=== PATIENT | female | born 1975 | race Caucasian/White ===

== ENCOUNTER 2017-10-05 15:51 | Inpatient (IN) | payer OTHER ==
[~2017-10-05] VITALS: Ht 162.6 cm; Wt 89.0 kg
[2017-10-05] MEDS ORDERED: SULF800T23 PO (17:18)
[2017-10-05] MEDS ORDERED: VNTHFA/IN INH (17:18)
[2017-10-05] MEDS ORDERED: OXYC-57 PO (17:18)
[2017-10-05 17:40] VITALS: BP 113/74; PULSE 72; TEMP 36.6; O2SAT 93
[2017-10-05 17:43] LABS: BASO % 0.5 %; BASO ABS # 0.04 K/uL (0-0.2); EOS % 3.3 %; EOS ABS # 0.25 K/uL (0-0.5); HEMATOCRIT 39.8 % (37-47); HEMOGLOBIN 14.4 g/dL (12.0-16.0); IG# 0.01 K/uL (0.00-0.02); LYMPH ABS # 1.76 K/uL (1.2-3.4); MEAN CELL VOLUME 91.9 fL (80-100); MEAN CORPUSCULAR HEMOGLOBIN 33.3 pg (25-34); MEAN CORPUSCULAR HGB CONC 36.2 g/dl (32-36); MEAN PLATELET VOLUME 9.6 fL (7.4-10.4); MONO ABS # 0.46 K/uL (0.11-0.59); NEUT % 67.1 %; NEUT ABS # 5.12 K/uL (1.4-6.5); PLATELET COUNT 248 K/uL (130-400); RED CELL DISTRIBUTION WIDTH CV 12.4 % (11.5-14.5); RED CELL DISTRIBUTION WIDTH SD 42.1 fL (36.4-46.3); WHITE BLOOD COUNT 7.64 K/uL (4.8-10.8)
[2017-10-05 18:10] LABS: CALCIUM 8.6 mg/dl (8.5-10.1); CREATININE 0.63 mg/dl (0.60-1.20); POTASSIUM 3.7 mmol/L (3.5-5.1)
[2017-10-05] MEDS ORDERED: ONDANSETRON INJ 2 MG/ML 2 ML VIAL IV PRN (18:15)
[2017-10-05] MEDS ORDERED: ALUMINUM/MAGNESIUM SUSP 30 ML UDC PO PRN (18:15)
[2017-10-05] MEDS ORDERED: ALBUTEROL HFA 8 GM INHALER INH PRN (18:15)
[2017-10-05 19:38] VITALS: BP 111/85; PULSE 74; TEMP 36.9; O2SAT 99; Ht 162.6 cm; Wt 89.0 kg
[2017-10-05] MEDS: CEFAZOLIN IV 1,000 MG in SYRINGE 0 ML IV SCH (20:00)
[2017-10-05] MEDS: DOCUSATE SODIUM 100 MG CAP PO SCH (21:01)
[2017-10-05] MEDS: D5W AND 1/2NSS 1,000 ML IV SCH (21:01)
[2017-10-05 23:05] VITALS: BP 112/76; PULSE 75; TEMP 36.6; O2SAT 100
--- NOTE | 2017-10-05 23:51 | EMERGENCY ROOM VISIT NOTE ---
History Report prepared by Emilia: Hi Weldon Under the Supervision of: Dr. Jorge Lemos M.D. First contact with patient: 16:49 Chief Complaint: INFECTION Stated Complaint: INFECTION (RIGHT HAND) Nursing Triage Summary: pt reprots that she broke her hand 1 month ago. pt was having reddness, swelling and drainage and had MRI done thursday. pt was told by her doctor to come here for IV abx after having an MRI. History of Present Illness The patient is a 42 year old female who presents to the Emergency Room with complaints of a worsening right hand infection over the past week. She states that she had initially broken her right hand, and had surgery with pins inserted by Dr. Duarte of [facility]. The patient notes that she had the pins taken out on the 28 of September, but starting the week before that, she was having redness and pain with yellow discharge coming out of the right hand. She says that she had a culture sent in to [facility], but the culture was put in the wrong tube so she never got the results. The patient then had an MRI in [place], and today was told by Dr. Duarte' office to come here for IV antibiotics. Pt denies LOC, headache, fevers, chills, diaphoresis, visual changes, neck pain, chest pain, breathing difficulties, nausea, vomiting, abdominal pain, back pain, melena, hematochezia, urinary symptoms, numbness, weakness, lymphadenopathy, or other complaints. Source of History: patient Onset: Over past week Position: hand (right) Symptom Intensity: redness, pain, yellow discharge Quality: other (infection) Timing: worsening Note: No other associated symptoms noted. Review of Systems See HPI for pertinent positives and negatives. A total of ten systems were reviewed and were otherwise negative. Past Medical & Surgical Medical Problems: (1) Asthma (2) Infection of hand Family History Hypertension Seizures Social History Smoking Status: Never Smoker Alcohol Use: occasionally Marital Status: in relationship Housing Status: lives with family Current/Historical Medications Scheduled Sulfa/Trimethoprim (Bactrim Ds 800MG/160MG), 1 TAB PO Q12 Scheduled PRN Albuterol Hfa (Ventolin Hfa), 2 PUFFS INH QID PRN for Shortness of Breath Oxycodone/Acetaminophen 5MG/325MG (Percocet 5MG/325MG), 1-2 TABLET PO Q6H PRN for Pain Allergies Coded Allergies: NSAIDs (Unverified Allergy, Unknown, lap band, 10/05/17) Cyclobenzaprine (Verified Adverse Reaction, Mild, restless legs , 10/05/17) Physical Exam Vital Signs Date Time Temp Pulse Resp B/P (MAP) Pulse Ox O2 Delivery O2 Flow Rate FiO2 10/05/17 17:59 79 18 111/82 98 Room Air 10/05/17 16:05 36.9 73 20 136/95 98 Room Air Physical Exam GENERAL: Awake, alert, well-appearing, in no distress HENT: Normocephalic, atraumatic. Oropharynx unremarkable. EYES: Normal conjunctiva. Sclera non-icteric. NECK: Supple. No nuchal rigidity. FROM. No masses. RESPIRATORY: Clear to auscultation. No wheezes. No rales. Normal respiratory effort. CARDIAC: Normal rate. Normal rhythm. No murmurs. No rubs. Extremities warm and well perfused. Pulses equal. No JVD. GI: Soft, non-distended. No tenderness to palpation. No rebound or guarding. No masses. RECTAL: Deferred. MUSCULOSKELETAL: Tenderness and redness over healing incision over right 5th MCP joint. Fingers and rest of hand appear normal. Inability to extend right 5th digit. Chest examination reveals no tenderness. The back is symmetrical on inspection without obvious abnormality. There is no CVA tenderness to palpation. LOWER EXTREMITIES: Calves are equal size bilaterally and non-tender. No edema. No discoloration. NEURO: Normal sensorium. No sensory or motor deficits noted. SKIN: No rash or jaundice noted. Medical Decision & Procedures Laboratory Results 10/05/17 17:22 Red Blood Count 4.33, Mean Corpuscular Volume 91.9, Mean Corpuscular Hemoglobin 33.3, Mean Corpuscular Hemoglobin Concent 36.2, Mean Platelet Volume 9.6, Neutrophils (%) (Auto) 67.1, Lymphocytes (%) (Auto) 23.0, Monocytes (%) (Auto) 6.0, Eosinophils (%) (Auto) 3.3, Basophils (%) (Auto) 0.5, Neutrophils # (Auto) 5.12, Lymphocytes # (Auto) 1.76, Monocytes # (Auto) 0.46, Eosinophils # (Auto) 0.25, Basophils # (Auto) 0.04 10/05/17 17:22 Test 10/05/17 17:22 White Blood Count 7.64 K/uL (4.8-10.8) Red Blood Count 4.33 M/uL (4.2-5.4) Hemoglobin 14.4 g/dL (12.0-16.0) Hematocrit 39.8 % (37-47) Mean Corpuscular Volume 91.9 fL (80-100) Mean Corpuscular Hemoglobin 33.3 pg (25-34) Mean Corpuscular Hemoglobin Concent 36.2 g/dl (32-36) Platelet Count 248 K/uL (130-400) Mean Platelet Volume 9.6 fL (7.4-10.4) Neutrophils (%) (Auto) 67.1 % Lymphocytes (%) (Auto) 23.0 % Monocytes (%) (Auto) 6.0 % Eosinophils (%) (Auto) 3.3 % Basophils (%) (Auto) 0.5 % Neutrophils # (Auto) 5.12 K/uL (1.4-6.5) Lymphocytes # (Auto) 1.76 K/uL (1.2-3.4) Monocytes # (Auto) 0.46 K/uL (0.11-0.59) Eosinophils # (Auto) 0.25 K/uL (0-0.5) Basophils # (Auto) 0.04 K/uL (0-0.2) RDW Standard Deviation 42.1 fL (36.4-46.3) RDW Coefficient of Variation 12.4 % (11.5-14.5) Immature Granulocyte % (Auto) 0.1 % Immature Granulocyte # (Auto) 0.01 K/uL (0.00-0.02) Erythrocyte Sedimentation Rate 11 mm/hr (0-21) Anion Gap 7.0 mmol/L (3-11) Est Creatinine Clear Calc Drug Dose 128.3 ml/min Estimated GFR () 130.0 Estimated GFR (Non- 112.2 BUN/Creatinine Ratio 13.5 (10-20) Calcium Level 8.6 mg/dl (8.5-10.1) C-Reactive Protein < 0.29 mg/dl (0-0.29) Chemistry Specimen Hemolysis Laboratory results reviewed by me Medications Administered Medications (Trade) Dose Ordered Sig/Molly Route Start Time Stop Time Status Last Admin Dose Admin Dextrose/Sodium Chloride 1,000 ml @ 75 mls/hr [id number] IV 10/05/17 18:11 11/04/17 18:10 10/05/17 21:01 75 MLS/HR ED Course 1656: The patient was evaluated in room C9. A complete history and physical exam was performed. 1718: The MRI from [facility] shows osteomyelitis. 1721: I discussed the patient with Dr. Sujata ALVAREZ. 1803: I discussed the patient with Dr. Sujata ALVAREZ - orthopedics will evaluate the patient for further treatment. 1810: Upon reexamination, the patient was resting comfortably. I discussed the test results and treatment plan with her. She expressed understanding and agreement of the treatment plan. The patient will be evaluated by orthopedics for further management. Medical Decision The patient presented emergency department complaining of an infection in her surgical site of her hand. Differential includes osteomyelitis, wound infection , abscess, cellulitis, as well as others. The patient's physical examination did not reveal any clear signs of abscess. MRI report was obtained from the outpatient imaging and this was concerning for osteomyelitis. Blood work was unremarkable. Additional imaging was not performed. I did consult with [facility]. The patient will be admitted for further treatment and antibiotic administration. Medication Reconcilliation Current Medication List: was personally reviewed by me Blood Pressure Screening Patient's blood pressure: Elevated blood pressure Blood pressure disposition: Elevated BP felt to be situational Consults Time Called: 1717 Consulting Physician: Dr. Sujata ALVAREZ Returned Call: 1721 I discussed the patient with Dr. Sujata ALVAREZ. Additional Consults: Time Called: -- Consulted Physician: Dr. Sujata ALVAREZ Returned Call: 1803 Additional Comments: I discussed the patient with Dr. Sujata ALVAREZ - orthopedics will evaluate the patient for further treatment. Impression Primary Impression: Osteomyelitis of right hand Scribe Attestation The scribe's documentation has been prepared under my direction and personally reviewed by me in its entirety. I confirm that the note above accurately reflects all work, treatment, procedures, and medical decision making performed by me. Departure Information Dispostion Other (Being evaluated by orthopedics) Referrals No Doctor, Assigned (PCP) Patient Instructions My [facility] Problem Qualifiers Primary Impression: Osteomyelitis of right hand Osteomyelitis type: unspecified type Qualified Codes: M86.9 - Osteomyelitis , unspecified
[2017-10-06] VITALS (7 sets, daily range): BP systolic 80–111; BP diastolic 49–73; PULSE 65–81; TEMP 36.7–36.8; O2SAT 94–98
[2017-10-06] MEDS: OXYCODONE/ACETAMINOPHEN 5-325 TAB PO PRN ×2 (01:54→18:45)
[2017-10-06] MEDS: CEFAZOLIN IV 1,000 MG in SYRINGE 0 ML IV SCH (04:58)
--- NOTE | 2017-10-06 07:22 | History and Physical ---
History & Physical Date October 06, 2017. Chief Complaint right hand pain History of Present Illness The patient is a 42 year old female who presented to the Emergency Room with complaints of a worsening right hand infection over the past week. She originally underwent a right shoulder SLAP repair approximately 6 weeks ago, upon follow to have her sutures removed it was noted that she was in a ulnar gutter splint. when questioned what happened, she stated she got upset and had her sling off, then punched a wall. she had a displaced 5th metacarpal fracture which required CRPP. after routine follow up, she presented last week to have the pins removed, after removal, it was noted that she had purulent drainage noted from the pin sites. MRI was obtained which was concerning for osteomyelitis as well as inflammatory changes noted along adjacent soft tissue. Pt denies LOC, headache, fevers, chills, diaphoresis, visual changes, neck pain , chest pain, breathing difficulties, nausea, vomiting, abdominal pain, back pain, melena, hematochezia, urinary symptoms, numbness, weakness, lymphadenopathy, or other complaints. Past Medical/Surgical History Medical Problems: (1) Asthma (2) Infection of hand Additional History Hepatic Disease: No Endocrine Disorder: No Kidney Disease: No Hypertension: No Heart Disease: No Allergies Coded Allergies: NSAIDs (Unverified Allergy, Unknown, lap band, 10/05/17) Cyclobenzaprine (Verified Adverse Reaction, Mild, restless legs , 10/05/17) Home Medications Scheduled Sulfa/Trimethoprim (Bactrim Ds 800MG/160MG), 1 TAB PO Q12 Scheduled PRN Albuterol Hfa (Ventolin Hfa), 2 PUFFS INH QID PRN for Shortness of Breath Oxycodone/Acetaminophen 5MG/325MG (Percocet 5MG/325MG), 1-2 TABLET PO Q6H PRN for Pain Physical Examination Skin: warm/dry, no rash Eyes: normal inspection, EOMI, sclerae normal ENT: normal ENT inspection, pharynx normal Head: normocephalic, atraumatic Neck: supple, no adenopathy, trachea midline Respiratory/Chest: lungs clear, normal breath sounds, no respiratory distress Cardiovascular: regular rate, rhythm, no edema, no murmur Addiitonal Comments: right hand: erythema noted over dorsum of hand with swelling extending to proximal wrist crease, NVDI, CR <2sec, tenderness greatest over 5th MC but extends over dorsum of hand. was noted to have purulent drainage from the two distal pin sites. MRI: reviewed and concerning for osteomyelitis with inflammatory findings extending into the adjacent soft tissues including the extensor tendon and dorsal cutaneous surface. Diagnosis Right hand infection s/p CRPP of 5th metacarpal fracture Plan of Treatment Patient admitted for IV antibiotics and will be re-examined later today for possible I&D right hand. will keep NPO today for possible planned surgery. cont to ice/elevate for swelling, consult dr [facility].
[2017-10-06 07:36] LABS: HEMATOCRIT 36.6 % (37-47); HEMOGLOBIN 12.9 g/dL (12.0-16.0); MEAN CELL VOLUME 92.9 fL (80-100); MEAN CORPUSCULAR HEMOGLOBIN 32.7 pg (25-34); MEAN CORPUSCULAR HGB CONC 35.2 g/dl (32-36); MEAN PLATELET VOLUME 9.5 fL (7.4-10.4); PLATELET COUNT 209 K/uL (130-400); RED CELL DISTRIBUTION WIDTH CV 12.5 % (11.5-14.5); RED CELL DISTRIBUTION WIDTH SD 42.7 fL (36.4-46.3); WHITE BLOOD COUNT 7.16 K/uL (4.8-10.8)
[2017-10-06] MEDS: PANTOprazole SOD 40 MG TAB PO SCH (08:05)
[2017-10-06] MEDS: DOCUSATE SODIUM 100 MG CAP PO SCH ×2 (08:05→21:00)
[2017-10-06] MEDS: D5W AND 1/2NSS 1,000 ML IV SCH ×2 (08:05→20:51)
--- NOTE | 2017-10-06 10:25 | Medical Consult ---
Consultation Date of Consultation: October 06, 2017. Attending Physician: Ruslan Duarte D.O. Reason for Consultation: Hand infection History of Present Illness 42-year-old female status post right shoulder surgery in approximately 6 weeks ago, then suffered fracture of her right hand requiring pinning. She subsequently developed drainage from the wound with redness, swelling, and pain , treated with cephalexin without much improvement. Subsequently underwent removal of the pins and was changed to oral Bactrim therapy. Symptoms worsened , and MRI was obtained which showed possibility of osteomyelitis of the right hand. She was admitted to the hospital for further management. She has been started on cefazolin. Blood cultures are pending. Apparently wound culture which was taken at another hospital was Ms. yusuf older no results available. She has not had any significant fever or chills. Past Medical/Surgical History Medical Problems: (1) Osteomyelitis of right hand Status: Acute Medical Problems: (1) Asthma (2) Infection of hand Family History Hypertension Seizures Social History Smoking Status: Never Smoker Marital Status: in relationship Housing Status: lives with family Allergies Coded Allergies: NSAIDs (Unverified Allergy, Unknown, lap band, 10/05/17) Cyclobenzaprine (Verified Adverse Reaction, Mild, restless legs , 10/05/17) Current Inpatient Medications Current Inpatient Medications Medications (Trade) Dose Ordered Sig/Molly Route Start Time Stop Time Status Last Admin Dose Admin Oxycodone/ Acetaminophen (Percocet 5-325mg Tab) `1-2 TABS FOR PAIN `1 TAB... Q4H PRN PO 10/05/17 18:15 10/19/17 18:14 10/06/17 01:54 2 TAB Diphenhydramine HCl (Benadryl Cap) 25 mg Q8 PRN PO 10/05/17 18:15 11/04/17 18:14 Ondansetron HCl (Zofran Inj) 4 mg Q6H PRN IV 10/05/17 18:15 11/04/17 18:14 Al Hydroxide/Mg Hydroxide (Maalox Susp) 30 ml Q6H PRN PO 10/05/17 18:15 11/04/17 18:14 Docusate Sodium (coLACE CAP) 100 mg BID PO 10/05/17 21:00 11/04/17 20:59 10/05/17 21:01 100 MG Pantoprazole Sodium (Protonix Tab) 40 mg QAM PO 10/06/17 09:00 10/09/17 09:01 Dextrose/Sodium Chloride 1,000 ml @ 75 mls/hr [id number] IV 10/05/17 18:11 11/04/17 18:10 10/06/17 08:05 75 MLS/HR Cefazolin Sodium 1000 mg/Syringe 7.5 ml @ 2.5 mls/min Q8H IV 10/05/17 20:00 10/07/17 10:50 10/06/17 04:58 2.5 MLS/MIN Albuterol (Ventolin Hfa Inhaler) 2 puffs QID PRN INH 10/05/17 18:15 11/04/17 18:14 Review of Systems Constitutional: No fever, No chills Eyes: No problem reported ENT: No problem reported Respiratory: No problem reported Cardiovascular: No problem reported Abdomen: No problem reported Musculoskeletal: + joint pain, + swelling Genitourinary - Female: No problem reported Neurologic: No balance problems Psychiatric: No problem reported Endocrine: No problem reported Hematologic / Lymphatic: No problem reported Integumentary: + new/changing skin lesions Allergic / Immunologic: No problem reported Physical Exam Date Time Temp Pulse Resp B/P (MAP) Pulse Ox O2 Delivery O2 Flow Rate FiO2 10/06/17 07:25 90/57 (68) 10/06/17 07:20 Room Air 10/06/17 07:11 36.7 69 18 80/49 (59) 98 Room Air 10/05/17 23:23 Room Air 10/05/17 23:05 36.6 75 18 112/76 (88) 100 Room Air 10/05/17 20:00 Room Air 10/05/17 19:46 73 18 120/81 99 10/05/17 19:38 36.9 74 18 111/85 99 Room Air 10/05/17 18:57 74 18 111/85 100 Room Air 10/05/17 17:59 79 18 111/82 98 Room Air 10/05/17 16:05 36.9 73 20 136/95 98 Room Air General Appearance: WD/WN, no apparent distress Head: normocephalic, atraumatic Eyes: normal inspection, EOMI, sclerae normal ENT: normal ENT inspection, hearing grossly normal, pharynx normal Neck: supple, no adenopathy, thyroid normal, trachea midline Respiratory/Chest: chest non-tender, lungs clear, normal breath sounds, no respiratory distress Cardiovascular: regular rate, rhythm, no gallop, no murmur Abdomen/GI: normal bowel sounds, non tender, soft, no organomegaly Back: normal inspection, no CVA tenderness Extremities/Musculoskelatal: no calf tenderness, normal capillary refill, + pertinent finding (decresed right 5th finger motion) Neurologic/Psych: alert, normal mood/affect, oriented x 3 Skin: normal color, no rash, + pertinent finding Lymphatic: no adenopathy Laboratory Results Date/Time Source Procedure Growth Status 10/05/17 17:28 Blood Blood Culture Pending Received 10/05/17 17:22 Blood Blood Culture Pending Received Last 24 Hours Test 10/05/17 17:22 10/06/17 07:24 White Blood Count 7.64 K/uL 7.16 K/uL Red Blood Count 4.33 M/uL 3.94 M/uL Hemoglobin 14.4 g/dL 12.9 g/dL Hematocrit 39.8 % 36.6 % Mean Corpuscular Volume 91.9 fL 92.9 fL Mean Corpuscular Hemoglobin 33.3 pg 32.7 pg Mean Corpuscular Hemoglobin Concent 36.2 g/dl 35.2 g/dl Platelet Count 248 K/uL 209 K/uL Mean Platelet Volume 9.6 fL 9.5 fL Neutrophils (%) (Auto) 67.1 % Lymphocytes (%) (Auto) 23.0 % Monocytes (%) (Auto) 6.0 % Eosinophils (%) (Auto) 3.3 % Basophils (%) (Auto) 0.5 % Neutrophils # (Auto) 5.12 K/uL Lymphocytes # (Auto) 1.76 K/uL Monocytes # (Auto) 0.46 K/uL Eosinophils # (Auto) 0.25 K/uL Basophils # (Auto) 0.04 K/uL RDW Standard Deviation 42.1 fL 42.7 fL RDW Coefficient of Variation 12.4 % 12.5 % Immature Granulocyte % (Auto) 0.1 % Immature Granulocyte # (Auto) 0.01 K/uL Erythrocyte Sedimentation Rate 11 mm/hr Sodium Level 136 mmol/L Potassium Level 3.7 mmol/L Chloride Level 106 mmol/L Carbon Dioxide Level 23 mmol/L Anion Gap 7.0 mmol/L Blood Urea Nitrogen 8 mg/dl Creatinine 0.63 mg/dl Est Creatinine Clear Calc Drug Dose 128.3 ml/min Estimated GFR () 130.0 Estimated GFR (Non- 112.2 BUN/Creatinine Ratio 13.5 Random Glucose 91 mg/dl Calcium Level 8.6 mg/dl C-Reactive Protein < 0.29 mg/dl Chemistry Specimen Hemolysis Assessment & Plan Right hand infection with probable osteomyelitis, for I+D later today. Will change to IV daptomycin as likely will require prolonged IV RX as outpatient. Await OR cultures. Will follow.
[2017-10-06] MEDS: DAPTOmycin IV 400 MG in SYRINGE 0 ML IV SCH (11:45)
--- NOTE | 2017-10-06 11:59 | History & Physical Bridge Note ---
H&P Re-Evaluation Bridge Note: I have examined the patient, reviewed the History & Physical and in the interval since the performance of the History & Physical I have noted the following changes of clinical significance: No changes noted
[2017-10-06] MEDS ORDERED: BACITRACIN 50000 UNIT VIAL ONE (14:30)
[2017-10-06] MEDS ORDERED: MIDAZOLAM HCL 1 MG/ML 2ML VIAL ONE (14:43)
[2017-10-06] MEDS ORDERED: FENTANYL CITRATE INJ 50 MCG/1 ML 2 ML VIAL ONE ×2 (14:43→15:25)
[2017-10-06] MEDS ORDERED: EpHEDrine SULFATE INJ 50 MG/ML AMP IV PRN (14:45)
[2017-10-06] MEDS ORDERED: ATROPINE SULFATE 0.1 MG/ML 5ML SYR IV PRN (14:45)
[2017-10-06] MEDS ORDERED: ONDANSETRON INJ 2 MG/ML 2 ML VIAL IV PRN ×2 (14:45→15:30)
[2017-10-06] MEDS ORDERED: DEXAMETHASONE SOD INJ 4 MG/ML VIAL ONE (15:25)
[2017-10-06] MEDS ORDERED: PROPOFOL IV EMULSION 10 MG/ML 20 ML VIAL ONE (15:25)
[2017-10-06] MEDS ORDERED: LIDOCAINE HCL 2% 2 ML VIAL (20MG/ML) ONE (15:25)
[2017-10-06] MEDS ORDERED: ONDANSETRON INJ 2 MG/ML 2 ML VIAL ONE (15:25)
[2017-10-06] MEDS ORDERED: MAGNESIUM HYDROXIDE SUSP 30 ML UDC PO PRN (15:30)
[2017-10-06] MEDS ORDERED: MoRPHine SULFATE 4 MG/ML 1 ML CARP\\VIAL IV PRN (15:30)
[2017-10-06] MEDS ORDERED: ALUMINUM/MAGNESIUM/SIMETH (MAALOX MAX) 30 ML UDC PO PRN (15:30)
[2017-10-06] MEDS ORDERED: BISACODYL 10 MG SUPP PR PRN (15:30)
[2017-10-06] MEDS ORDERED: MoRPHine SULFATE 10 MG/ML CARP/VIAL IV PRN (15:45)
--- NOTE | 2017-10-06 15:47 | [facility] Post Operative Brief Note ---
Immediate Operative Summary Operative Date October 06, 2017. Pre-Operative Diagnosis Right hand infection status post closed reduction percutaneous pinning of 5th metacarpal fracture Post-Operative Diagnosis same Procedure(s) Performed Right Hand Incision and Drainage with application of packing Surgeon Dr. Ruslan Duarte Pediatric Social Worker Surgeon(s) none Estimated Blood Loss 5mL Findings Consistent with Post-Op Diagnosis Specimens Microbiology: 1. Right small finger wound extensor mechanism Drains None Anesthesia Type General Complication(s) none Disposition Disposition: Recovery Room / PACU
--- NOTE | 2017-10-06 15:49 | [facility] Operative Report ---
Operative Report Operative Date October 06, 2017. Pre-Operative Diagnosis Right hand infection status post closed reduction percutaneous pinning of 5th metacarpal fracture Post-Operative Diagnosis same Procedure(s) Performed At extensor mechanism MCP joint right fifth finger right Hand Incision and Drainage with application of packing Surgeon Dr. Ruslan Duarte Fiscal Analyst Surgeon(s) none Estimated Blood Loss 5mL Findings Patient presents with small area of purulent drainage from the region of pr Patient presents as more purulent any drainage superficial extensor mechanism in region of previous IM pinning Specimens Microbiology: 1. Right small finger wound extensor mechanism Drains None Anesthesia Type General Complication(s) none Disposition Recovery Room / PACU Indications Small area of purulent drainage from previous pin site from I am pinning of fifth met of carpal fracture with surrounding cellulitis Description of Procedure After proper prepping and draping the right upper extremity a 1 cm incision was made over the region of the small fluctuant area there is a small appearance extend that was superficial to the extensor mechanism this was all debrided and washed out the joint was not involved the wound was irrigated with copious sterile saline solution via 6 L of sterile saline solution with bacitracin impregnated and the wound had been thoroughly irrigated for a gyriform packing was placed in the prone to small number of 4-0 sutures were placed to approximate left proximal and distal portion of the wound sterile compressive dressing was placed patient taken recovery in stable condition. I attest to the content of the Intraoperative Record and any orders documented therein. Any exceptions are noted below.
[2017-10-06] MEDS: FENTANYL CITRATE INJ 50 MCG/1 ML 2 ML VIAL IV PRN ×5 (16:04→16:29)
[2017-10-06] MEDS: HYDROmorphone INJ 0.5 MG/0.5 ML SYR IV PRN ×2 (16:35→16:41)
--- NOTE | 2017-10-06 16:56 | Anesthesiology Progress Note ---
Anesthesia Post Op Note Date & Time October 06, 2017 at 16:56 Vital Signs Pain Intensity: 5 Vital Signs Past 12 Hours Date Time Temp Pulse Resp B/P (MAP) Pulse Ox O2 Delivery O2 Flow Rate FiO2 10/06/17 16:51 36.6 94 Room Air 10/06/17 16:47 63 22 10/06/17 16:47 61 22 99 10/06/17 16:46 114/71 10/06/17 16:42 67 16 93 10/06/17 16:42 66 16 10/06/17 16:41 63 13 10/06/17 16:41 62 13 121/76 96 10/06/17 16:36 65 16 10/06/17 16:36 64 16 116/64 99 10/06/17 16:31 67 25 94 10/06/17 16:31 68 25 10/06/17 16:30 114/76 10/06/17 16:28 61 17 96 10/06/17 16:28 63 17 10/06/17 16:26 107/66 10/06/17 16:23 61 18 100 10/06/17 16:23 60 18 10/06/17 16:21 119/79 10/06/17 16:18 61 25 100 10/06/17 16:18 60 25 10/06/17 16:17 63 15 100 10/06/17 16:17 63 15 10/06/17 16:16 129/82 10/06/17 16:12 71 14 10/06/17 16:12 74 14 100 10/06/17 16:10 114/83 10/06/17 16:10 36.7 70 16 120/74 100 Oxymask 10 10/06/17 16:07 69 20 100 10/06/17 16:07 70 20 10/06/17 16:06 121/74 10/06/17 16:02 68 17 100 10/06/17 16:02 68 17 10/06/17 16:01 124/78 10/06/17 15:58 120/74 10/06/17 15:57 70 20 10/06/17 15:57 75 20 10/06/17 12:25 37.1 72 20 108/70 (83) 97 Room Air 10/06/17 07:25 90/57 (68) 10/06/17 07:20 Room Air 10/06/17 07:11 36.7 69 18 80/49 (59) 98 Room Air Notes Mental Status: alert / awake / arousable, participated in evaluation Pt Amnestic to Procedure: Yes Nausea / Vomiting: adequately controlled Pain: adequately controlled Airway Patency, RR, SpO2: stable & adequate BP & HR: stable & adequate Hydration State: stable & adequate Anesthetic Complications: no major complications apparent
[2017-10-07 04:00] VITALS: BP 95/58; PULSE 74; TEMP 36.4; O2SAT 96
[2017-10-07] MEDS: D5W AND 1/2NSS 1,000 ML IV SCH (05:36)
[2017-10-07 07:21] VITALS: BP 100/67; PULSE 78; TEMP 36.5; O2SAT 99
[2017-10-07 08:27] LABS: HEMATOCRIT 36.3 % (37-47); HEMOGLOBIN 12.8 g/dL (12.0-16.0); MEAN CELL VOLUME 92.4 fL (80-100); MEAN CORPUSCULAR HEMOGLOBIN 32.6 pg (25-34); MEAN CORPUSCULAR HGB CONC 35.3 g/dl (32-36); MEAN PLATELET VOLUME 9.8 fL (7.4-10.4); PLATELET COUNT 237 K/uL (130-400); RED CELL DISTRIBUTION WIDTH CV 12.2 % (11.5-14.5); RED CELL DISTRIBUTION WIDTH SD 41.4 fL (36.4-46.3); WHITE BLOOD COUNT 10.76 K/uL (4.8-10.8)
[2017-10-07] MEDS: PANTOprazole SOD 40 MG TAB PO SCH (09:00)
[2017-10-07] MEDS ORDERED: SODIUM CHLORIDE 0.9% IV SCH (09:00)
[2017-10-07] MEDS ORDERED: DAPTOMYCIN IV SCH (09:00)
[2017-10-07] MEDS: DOCUSATE SODIUM 100 MG CAP PO SCH (09:00)
[2017-10-07] MEDS ORDERED: MULTIVITAMIN TAB PO SCH (09:00)
[2017-10-07] MEDS ORDERED: NURSING VERBAL MED ORDER ONE (10:00)
[2017-10-07 10:07] VITALS: BP 100/67; PULSE 78; TEMP 36.5; O2SAT 99
[2017-10-07] MEDS: OXYCODONE/ACETAMINOPHEN 5-325 TAB PO PRN (10:42)
[2017-10-07 11:27] VITALS: BP 118/75; PULSE 73; TEMP 36.8; O2SAT 100
[2017-10-07] MEDS: DAPTOmycin IV 400 MG in SYRINGE 0 ML IV SCH (11:39)
[2017-10-07] MEDS ORDERED: OXYC-57 PO (13:12)
[2017-10-07] MEDS ORDERED: DAPT500I IV (13:12)
--- NOTE | 2017-10-07 13:35 | Discharge Instructions ---
Discharge Instructions Date of Service October 07, 2017. Admission Reason for Admission: Infection Of Hand Discharge Discharge Diagnosis / Problem: Right hand infection status post closed reduction percutaneous pinning of 5 Discharge Goals Goal(s): Decrease discomfort, Improve function Activity Recommendations Activity Limitations: per Instructions/Follow-up section . Instructions / Follow-Up Instructions / Follow-Up ACTIVITY RECOMMENDATIONS: * Avoid lifting anything heavier than a medium water glass until your first post operative visit. SPECIAL CARE INSTRUCTIONS: * Your bandage should be changed daily for the first 5 days. If the wound remains dry, it can be changed every other day thereafter. You can use 4x4 gauze or smaller, kerlix wrap and an acewrap to cover the wound. * You may shower with a waterproof covering over the hand. * Keep the dressing clean and dry. * Some drainage onto the dressing may occur. This is normal. * If the bandage feels excessively tight, you may loosen the elastic bandage. Then call the physician's office for further instructions. * If possible, keep your hand elevated above the level of your heart for the first 2 post operative days. You may use a sling if necessary. * You should move your fingers regularly (50-100 motions per hour) unless otherwise instructed. SPECIAL PRECAUTIONS: * If you notice increased drainage, fever over 101 degrees F. or severe, unremitting pain, shortness of breath or chest pain, call your physician/ office at . * You may have been prescribed pain medication. If you experience nausea and/or skin rash, discontinue this medication and contact our office for an alternative medication. * You will be taking Daptomycin as your antibiotic. You will need weekly laboratory blood draws that will be done by the [facility]. The results will be sent to Dr Krishna. He will make any changes to your antibiotic as needed. FOLLOW UP VISIT: If appointment is not already scheduled: Please call [facility] to make a follow-up appointment with Dr Duarte in one week after your surgery at . Follow up with Dr Krishna in 7-10 days. Call for an appointment. [phone] Current Hospital Diet Patient's current hospital diet: Regular Diet Discharge Diet Recommended Diet: Regular Diet Procedures Procedures Performed: At extensor mechanism MCP joint right fifth finger right Hand Incision and Drainage with application of packing Pending Studies Studies pending at discharge: yes List of pending studies: Waiting for Final OR Cultures Medical Emergencies . Who to Call and When: Medical Emergencies: If at any time you feel your situation is an emergency, please call 911 immediately. . Non-Emergent Contact Non-Emergency issues call your: Surgeon Call Non-Emergent contact if: temperature is above 101.5, your pain is not controlled, your pain is worsening, wound has increased drainage, wound has increased redness . "Provider Documentation" section prepared by Ata Willis. . [place] Drug Monitoring Program Search Results: patient reviewed within database, no issues identified Drug Monitoring Findings: Pt receiving Percocet for hand surgery in the past. Last Rx was in early August.
[2017-10-07] MEDS ORDERED: ONDA-170 PO (14:07)
--- NOTE | 2017-10-07 15:01 | Infectious Disease Progress Nt ---
Progress Note Date of Service October 07, 2017. Subjective Pt evaluation today including: conversation w/ patient, physical exam, chart review, lab review, review of studies, conversation w/ [employer] sales consultant, review of inpatient medication list Offering no new complaints today. Tolerating antibiotic without apparent difficulty. Cultures growing staph aureus. All Other Systems: Reviewed and Negative Medications Current Inpatient Medications Medications (Trade) Dose Ordered Sig/Molly Route Start Time Stop Time Status Last Admin Dose Admin Oxycodone/ Acetaminophen (Percocet 5-325mg Tab) `1-2 TABS FOR PAIN `1 TAB... Q4H PRN PO 10/05/17 18:15 10/19/17 18:14 10/07/17 10:42 1 TAB Pantoprazole Sodium (Protonix Tab) 40 mg QAM PO 10/06/17 09:00 10/09/17 09:01 Dextrose/Sodium Chloride 1,000 ml @ 75 mls/hr [id number] IV 10/05/17 18:11 11/04/17 18:10 10/07/17 05:36 75 MLS/HR Albuterol (Ventolin Hfa Inhaler) 2 puffs QID PRN INH 10/05/17 18:15 11/04/17 18:14 Daptomycin 400 mg/ Syringe 8 ml @ 4 mls/min Q24H IV 10/06/17 12:00 11/17/17 11:59 10/07/17 11:39 4 MLS/MIN Magnesium Hydroxide (Milk Of Magnesia Susp) 30 ml Q6H PRN PO 10/06/17 15:30 11/05/17 15:29 Bisacodyl (Dulcolax Supp) 10 mg DAILY PRN KS 10/06/17 15:30 11/05/17 15:29 Docusate Sodium (coLACE CAP) 100 mg BID PO 10/06/17 21:00 11/05/17 20:59 Diphenhydramine HCl (Benadryl Cap) 25 mg Q8H PRN PO 10/06/17 15:30 11/05/17 15:29 Al Hydrox/Mg Hydrox/Simethicone (Maalox Max Susp) 15 ml Q4H PRN PO 10/06/17 15:30 11/05/17 15:29 Multivitamins (Multivitamin Tab) 1 tab QAM PO 10/07/17 09:00 11/06/17 08:59 10/07/17 09:24 1 TAB Ondansetron HCl (Zofran Inj) 4 mg Q6H PRN IV 10/06/17 15:30 11/05/17 15:29 10/06/17 20:02 4 MG Morphine Sulfate (MoRPHine SULFATE INJ) 2mg IV for Pain rating ... Q4HWA PRN IV 10/06/17 15:30 10/20/17 15:29 Morphine Sulfate (MoRPHine SULFATE INJ) 6 mg Q4HWA PRN IV 10/06/17 15:45 10/20/17 15:44 Objective Vital Signs Date Time Temp Pulse Resp B/P (MAP) Pulse Ox O2 Delivery O2 Flow Rate FiO2 10/07/17 11:27 36.8 73 18 118/75 (89) 100 10/07/17 10:07 36.5 78 18 99 Room Air 10/07/17 07:33 Room Air 10/07/17 07:21 36.5 78 18 100/67 (78) 99 Room Air 10/07/17 04:00 36.4 74 16 95/58 (70) 96 Room Air 10/06/17 23:15 Room Air 10/06/17 23:15 36.8 81 16 98/71 (80) 96 Room Air 10/06/17 20:07 36.8 78 16 111/73 (86) 94 10/06/17 19:08 79 18 108/70 (83) 98 10/06/17 18:10 36.7 69 16 111/73 (86) 95 Room Air 10/06/17 17:10 36.8 65 18 103/68 (80) 95 Room Air 10/06/17 17:10 95 Room Air 10/06/17 17:10 95 Room Air 10/06/17 16:55 128/76 10/06/17 16:53 70 16 94 10/06/17 16:53 68 16 10/06/17 16:51 102/64 10/06/17 16:51 36.6 94 Room Air 10/06/17 16:48 64 19 10/06/17 16:48 63 19 95 10/06/17 16:47 63 22 10/06/17 16:47 61 22 99 10/06/17 16:46 114/71 10/06/17 16:42 67 16 93 10/06/17 16:42 66 16 10/06/17 16:41 63 13 10/06/17 16:41 62 13 121/76 96 10/06/17 16:36 65 16 10/06/17 16:36 64 16 116/64 99 10/06/17 16:31 67 25 94 10/06/17 16:31 68 25 10/06/17 16:30 114/76 10/06/17 16:28 61 17 96 10/06/17 16:28 63 17 10/06/17 16:26 107/66 10/06/17 16:23 61 18 100 10/06/17 16:23 60 18 10/06/17 16:21 119/79 10/06/17 16:18 61 25 100 10/06/17 16:18 60 25 10/06/17 16:17 63 15 100 10/06/17 16:17 63 15 10/06/17 16:16 129/82 10/06/17 16:12 71 14 10/06/17 16:12 74 14 100 10/06/17 16:10 114/83 10/06/17 16:10 36.7 70 16 120/74 100 Oxymask 10 10/06/17 16:07 69 20 100 10/06/17 16:07 70 20 10/06/17 16:06 121/74 10/06/17 16:02 68 17 100 10/06/17 16:02 68 17 10/06/17 16:01 124/78 10/06/17 15:58 120/74 10/06/17 15:57 70 20 10/06/17 15:57 75 20 Physical Exam General Appearance: WD/WN, no apparent distress Eyes: normal inspection, EOMI, sclerae normal ENT: normal ENT inspection, pharynx normal Neck: supple, no adenopathy, thyroid normal, trachea midline Respiratory/Chest: chest non-tender, lungs clear, normal breath sounds, no respiratory distress Cardiovascular: regular rate, rhythm, no gallop, no murmur Abdomen: normal bowel sounds, non tender, soft, no organomegaly Extremities: no calf tenderness, normal capillary refill Neurologic/Psychiatric: alert, oriented x 3 Skin: normal color, no rash, + pertinent finding (Decreased right hand erythema and swelling) Lymphatic: no adenopathy Laboratory Results L RUN DATE: 10/07/17 [facility] LAB PAGE 1 RUN TIME: 1238 Specimen Inquiry PATIENT: DESHAUN RASCON LOC: [facility] U # : [id number] AGE/SX: 42/F ROOM: [facility] REG : 10/05/[address]: Ruslan Duarte D.O. : 1975 BED: 2 DIS : STATUS: ADM IN TLOC: SPEC #: [id number] KIMBER: 10/06/17 STATUS: RES REQ #: [id number] RECD: 10/06/[address] [facility] [address]: Ruslan Duarte D.O. SOURCE: DRAIN-DEEP ENTR: 10/06/17 [facility] DR: Henry Krishna MD SPDESC: FINGER, R4 Fernando Scott M.D., P.A. ORDERED: AER/GINA CULTSMR COMMENTS: SOURCE: RIGHT SMALL FINGER WOUND EXTENSOR MECHANISM Procedure Result Verified Site GRAM STAIN Final 10/07/17-829 RESULT MANY WBCs SEEN NO ORGANISMS SEEN OR AER/GINA CULT Preliminary 10/07/17-1238 Organism 1 STAPHYLOCOCCUS AUREUS QUANITY RARE SENS SENSITIVITY TO FOLLOW ast 24 Hours Test 10/07/17 07:59 White Blood Count 10.76 K/uL Red Blood Count 3.93 M/uL Hemoglobin 12.8 g/dL Hematocrit 36.3 % Mean Corpuscular Volume 92.4 fL Mean Corpuscular Hemoglobin 32.6 pg Mean Corpuscular Hemoglobin Concent 35.3 g/dl RDW Standard Deviation 41.4 fL RDW Coefficient of Variation 12.2 % Platelet Count 237 K/uL Mean Platelet Volume 9.8 fL Assessment and Plan Right hand infection with probable osteomyelitis, status post I&D, with cultures growing Staph aureus. Patient to be treated with daptomycin, likely in the range of 2-4 weeks IV.
--- NOTE | 2017-10-07 16:24 | Orthopedic Progress Note ---
Orthopedic Progress Note Date of Service October 07, 2017. Subjective Post OP Day: 1 Reports: feeling well, complaints (Mild discomfort of hand), Denies: chest pain , SOB, nausea / vomiting Objective N/V intact, dressing C/D/I, incision C/D/I (Packing in place, no active drainage , minimal surrounding erythema), A&O x3 Doing well, mild discomfort with movement. Packing was removed and new dressing applied. Patient tolerated this well. Date Time Temp Pulse Resp B/P (MAP) Pulse Ox O2 Delivery O2 Flow Rate FiO2 10/07/17 11:27 36.8 73 18 118/75 (89) 100 10/07/17 10:07 36.5 78 18 99 Room Air 10/07/17 07:33 Room Air 10/07/17 07:21 36.5 78 18 100/67 (78) 99 Room Air 10/07/17 04:00 36.4 74 16 95/58 (70) 96 Room Air 10/06/17 23:15 Room Air 10/06/17 23:15 36.8 81 16 98/71 (80) 96 Room Air 10/06/17 20:07 36.8 78 16 111/73 (86) 94 10/06/17 19:08 79 18 108/70 (83) 98 10/06/17 18:10 36.7 69 16 111/73 (86) 95 Room Air 10/06/17 17:10 36.8 65 18 103/68 (80) 95 Room Air 10/06/17 17:10 95 Room Air 10/06/17 17:10 95 Room Air 10/06/17 16:55 128/76 10/06/17 16:53 70 16 94 10/06/17 16:53 68 16 10/06/17 16:51 102/64 10/06/17 16:51 36.6 94 Room Air 10/06/17 16:48 64 19 10/06/17 16:48 63 19 95 10/06/17 16:47 63 22 10/06/17 16:47 61 22 99 10/06/17 16:46 114/71 10/06/17 16:42 67 16 93 10/06/17 16:42 66 16 10/06/17 16:41 63 13 10/06/17 16:41 62 13 121/76 96 10/06/17 16:36 65 16 10/06/17 16:36 64 16 116/64 99 10/06/17 16:31 67 25 94 10/06/17 16:31 68 25 10/06/17 16:30 114/76 10/06/17 16:28 61 17 96 10/06/17 16:28 63 17 10/06/17 16:26 107/66 10/06/17 16:23 61 18 100 10/06/17 16:23 60 18 10/06/17 16:21 119/79 10/06/17 16:18 61 25 100 10/06/17 16:18 60 25 10/06/17 16:17 63 15 100 10/06/17 16:17 63 15 Laboratory Results 24 Hours: Test 10/07/17 07:59 Hematocrit 36.3 % Hemoglobin 12.8 g/dL Assessment & Plan Assessment: POD 1 I&D Right hand infection status post closed reduction percutaneous pinning of 5th MC fracture Plan: Patient wishes to go home due to having to take care of her daughter who is sick ID is recommending patient go home with a picc line, and recommending Daptomycin , awaiting to see if will be covered. Awaiting cultures. Plan to discharge today pending picc line insertion and approval of IV antibiotics. Discharge Planning Discharge Planning: home with IV medication
--- NOTE | 2017-10-07 18:20 | Discharge Summary ---
Orthopedic Discharge Summary Admission Date/Reason October 05, 2017 at 18:18 Infection Of Hand. Discharge Date/Disposition October 07, 2017 Home Diagnosis Principal Diagnosis: infection right hand Procedure(s) Performed Right Hand Incision and Drainage with application of packing Consultations Dr Krishna infectious disease Medication Reconciliation New Medications: Daptomycin (Daptomycin) 500 Mg Inj 400 MG IV DAILY for 42 Days Ondansetron Hcl (Zofran) 8 Mg Tab 8 MG PO TID PRN for Nausea, #20 TAB Continued Medications: Albuterol Hfa (Ventolin Hfa) 200 Puffs/18363 Mcg Aers 2 PUFFS INH QID PRN for Shortness of Breath, #1 INHALER Oxycodone/Acetaminophen 5MG/325MG (Percocet 5MG/325MG) Tab 1-2 TABLET PO Q6H PRN for Pain, #40 TAB (This prescription has been renewed) PAIN Discontinued Medications: Sulfa/Trimethoprim (Bactrim Ds 800MG/160MG) Tab 1 TAB PO Q12, #6 TAB Admission Physical Exam As per Admitting History & Physical. Hospital Course patient was admitted on 10/05/17 for worsening infection of her right hand, is s/ p CRPP 5th metacarpal fracture. she was admitted for IV antibiotics and I&D. she underwent right hand incision and drainage and packing on 10/06 and tolerated the procedure well. PICC was placed on 10/07/17 and will be discharged on IV Daptomycin. below are pertinent labs/studies to her hospital stay: Date/Time Source Procedure Growth Status 10/05/17 17:28 Blood Blood Culture - Preliminary NO GROWTH TO DATE. Resulted 10/05/17 17:22 Blood Blood Culture - Preliminary Bacillus Species Not Anthracis Resulted 10/06/17 15:32 Drainage-Deep Finger , Right 4th Gram Stain - Final Resulted 10/06/17 15:32 Bacterial Culture - Preliminary Staphylococcus Aureus Resulted Last Resulted CBC 10/07/17 07:59 Last Resulted BMP 10/05/17 17:22 Discharge Instructions Discharge Instructions Date of Service October 07, 2017. Admission Reason for Admission: Infection Of Hand Discharge Discharge Diagnosis / Problem: Right hand infection status post closed reduction percutaneous pinning of 5 Discharge Goals Goal(s): Decrease discomfort, Improve function Activity Recommendations Activity Limitations: per Instructions/Follow-up section . Instructions / Follow-Up Instructions / Follow-Up ACTIVITY RECOMMENDATIONS: * Avoid lifting anything heavier than a medium water glass until your first post operative visit. SPECIAL CARE INSTRUCTIONS: * Your bandage should be changed daily for the first 5 days. If the wound remains dry, it can be changed every other day thereafter. You can use 4x4 gauze or smaller, kerlix wrap and an acewrap to cover the wound. * You may shower with a waterproof covering over the hand. * Keep the dressing clean and dry. * Some drainage onto the dressing may occur. This is normal. * If the bandage feels excessively tight, you may loosen the elastic bandage. Then call the physician's office for further instructions. * If possible, keep your hand elevated above the level of your heart for the first 2 post operative days. You may use a sling if necessary. * You should move your fingers regularly (50-100 motions per hour) unless otherwise instructed. SPECIAL PRECAUTIONS: * If you notice increased drainage, fever over 101 degrees F. or severe, unremitting pain, shortness of breath or chest pain, call your physician/ office at . * You may have been prescribed pain medication. If you experience nausea and/or skin rash, discontinue this medication and contact our office for an alternative medication. * You will be taking Daptomycin as your antibiotic. You will need weekly laboratory blood draws that will be done by the [facility]. The results will be sent to Dr Krishna. He will make any changes to your antibiotic as needed. FOLLOW UP VISIT: If appointment is not already scheduled: Please call [facility] [place] to make a follow-up appointment with Dr Duarte in one week after your surgery at . Follow up with Dr Krishna in 7-10 days. Call for an appointment. [phone] Current Hospital Diet Patient's current hospital diet: Regular Diet Discharge Diet Recommended Diet: Regular Diet Procedures Procedures Performed: At extensor mechanism MCP joint right fifth finger right Hand Incision and Drainage with application of packing Pending Studies Studies pending at discharge: yes List of pending studies: Waiting for Final OR Cultures Medical Emergencies . Who to Call and When: Medical Emergencies: If at any time you feel your situation is an emergency, please call 911 immediately. . Non-Emergent Contact Non-Emergency issues call your: Surgeon Call Non-Emergent contact if: temperature is above 101.5, your pain is not controlled, your pain is worsening, wound has increased drainage, wound has increased redness . "Provider Documentation" section prepared by Ata Willis. . [place] Drug Monitoring Program Search Results: patient reviewed within database, no issues identified Drug Monitoring Findings: Pt receiving Percocet for hand surgery in the past. Last Rx was in early August.
== END 2017-10-07 15:15 | disposition home health service (06) | DRG 580 ==
LOC: C.EDB 15:52 → C.MSW 18:18 → ENRESERV 19:35
PROVIDERS: ADMIT Orthopaedic Surgery; ATTEND Orthopaedic Surgery
PROC: 0J9J0ZZ Drainage of Right Hand Subcutaneous Tissue and Fascia, Open Approach (ICD-10-PCS; principal; 2017-10-06 13:30)
PROC: 05HC33Z Insertion of Infusion Device into Left Basilic Vein, Percutaneous Approach (ICD-10-PCS; 2017-10-07)
DX: L03.113 Cellulitis of right upper limb (principal); M86.9 Osteomyelitis, unspecified; B95.61 Methicillin susceptible Staphylococcus aureus infection as the cause of diseases classified elsewhere; S62.306D Unspecified fracture of fifth metacarpal bone, right hand, subsequent encounter for fracture with routine healing; W22.8XXD Striking against or struck by other objects, subsequent encounter; Z98.890 Other specified postprocedural states; E66.9 Obesity, unspecified; Z68.33 Body mass index [BMI] 33.0-33.9, adult; Z88.6 Allergy status to analgesic agent; Z88.8 Allergy status to other drugs, medicaments and biological substances